=== PATIENT | male | born 1955 | race Caucasian/White ===

== ENCOUNTER 2017-01-20 16:19 | Inpatient (IN) | payer SELFPAY ==
--- NOTE | 2017-01-20 17:47 | DR.GENAD ---
HPI - PCP Primary Care Physician: CHANTEL - HPI Comment HPI Comment: HISTORY BELOW. - Complaint/Symptoms Chief Complaint Doctors Comments: DIABETIC FOOT ULCER BOTH FEET. ULCERS DRAINING. REDNESS RT LEG. PATIENT ULCERS FOR FEW MONTHS NOW. TOOK BACTRIM. RECENTLY ADVICE AMPULATION OF ONE OF HIS LEG. SEE NURSING NOTE. Chief Complaint:: PT. HAS A WOUND TO RIGHT LOWER LEG ON THE BACK SIDE RIGHT ABOVE HEEL. AREA IS REDDENED AND WARM TO TOUCH. PT. JUST MOVED HERE FROM [place]. HE STATES ABOUT A MONTH AGO THEY WANTED TO AMPUTATE HIS RIGHT LEG DUE TO INFECTION. PT. STATES AREA ORIGINALLY APPEARED ABOUT 2 MONTHS AGO. PT. ALSO HAS A WOUND TO LEFT FOOT NEAR BASE OF GREAT TOE. - Nurses notes reviewed Nurses Notes Review: Yes - Source History Provided: Patient - Mode of Arrival Mode of Arrival: Ambulatory - Timing Onset of Chief Complaint: 11/21/16 Came on: Gradually - Duration Duration: Constant Duration: Weeks - Severity Severity: Moderate PMH - PMH Past Medical History: Yes Past Medical History: Arthritis, Diabetes Past Medical History Comment: NEUROPATHY Past Surgical History: Yes Surgical History: Other Past Surgical History Comment: 5TH DIGIT TO LEFT FOOT REMOVED - Family History History of Family Medical Conditions: No - Social History Does patient currently use any type of tobacco product: No Have you used tobacco products in the last 12 months: No Type of Tobacco Use: None Does any household member use tobacco: No Alcohol Use: Rarely Do you use any recreational Drugs:: No Lives With: Family Lives Where: Home - infectious screening In the last 2 months have you had wt loss of >10#?: NO Have you had fever, night sweats or hemotysis?: No Have you traveled outside the country in the last 6 months?: Yes Details about traveling: ARRIVED TO [place] 1 WEEK AGO FROM [place] Isolation: Standard ROS - Review of Systems Constitutional: Fatigue. negative: Chills, Fever Eyes: No Symptoms Reported ENTM: No Symptoms Reported Respiratoy: No Symptoms Reported Cardiovascular: No Symptoms Reported Gastrointestinal/Abdominal: No Symptoms Reported Genitourinary: No Symptoms Reported Neurological: No Symptoms Reported Musculoskeletal: Right, Left, Shoulder (PAIN BOTH SHOULDERS. TOOK STERIOD INJECTION FOR SAME PREVIOUSLY.), Leg, Foot Integumentary: Other (ULCERS FEET AND CELLULITIS RT LEG.) Hematologic/Lymphatic: No Symptoms Reported Endocrine: No Symptoms Reported All Other Systems: Reviewed and Negative PE - Vital Signs Vitals: Temperature 98.1 F Pulse Rate 78 Respiratory Rate 17 Blood Pressure 104/66 O2 Sat by Pulse Oximetry 99 - General Limitations: No Limitations General Appearance: Alert - Head Head Exam: Normal Inspection - Eyes Eye exam: Normal Appearance - ENT ENT Exam: Normal External Ear Exam External Ear Exam: Normal External Inspection TM/Canal Exam: Bilateral Normal Nose Exam: Normal Nose Exam Mouth Exam: Normal Inspection Throat Exam: Normal Inspection - Neck Neck Exam: Trachea Midline - Chest Chest Inspection: Symmetric Chest Wall Rise - Respiratory Respiratory Exam: Normal Lung Sounds Bilat Respiratory Exam: Bilateral Clear to Auscultation - Cardiovascular Cardiovascular Exam: Regular Rate, Normal Rhythm, Normal Heart Sounds - Abdominal Exam Abdominal Exam: Normal Bowel Sounds - Extremities Extremities Exam: Tenderness (DIABETIC ULCERS FEET. CELLULITIS RT LEG.), Joint Swelling - Back Back Exam: Normal Inspection - Neurologic Neurological Exam: Alert, Oriented X3 - Psychiatric Psychiatric Exam: Normal Affect, Normal Mood - Skin Skin Exam: Rash, Erythema MDM - Differential Diagnosis Differential Diagnosis: CELLULITIS, DIABETIC ULCERS, OSTEOMYELITIS, Course - Treatment Treatment: SEE ORDERS. - Consultation Consultation Comments: DISCUSS PATIENT WITH DR. MORGAN. HE WILL ADMIT PATIENT. - Education/Counseling Education/Counseling: Patient Educated On: Treatment, Diagnosis ROR - Labs Reviewed Laboratory Results Reviewed?: Yes Result Diagrams: 01/20/17 17:57 01/20/17 17:57 - XRAY XRAY Interpreted by: Radiologist XRAY Findings: REPORT DISCUSS WITH PATIENT. - Diagnosis Discharge Problem: Cellulitis Qualifiers: Site of cellulitis: extremity Site of cellulitis of extremity: toe Laterality: left Qualified Code(s): L03.032 - Cellulitis of left toe Diabetic foot ulcer Qualifiers: Diabetic foot ulcer location: heel Diabetes mellitus type: type 2 Laterality: right Non-pressure ulcer stage: with necrosis of bone Qualified Code(s): E11.621 - Type 2 diabetes mellitus with foot ulcer; L97.414 - Non-pressure chronic ulcer of right heel and midfoot with necrosis of bone - Discharge Plan Disposition: ADMITTED INPATIENT Condition: Stable - Follow ups/Referrals - Instructions
[2017-01-20 18:11] LABS: BASOPHILS % (AUTO) 0.4 % (0.2-1.0); EOSINOPHILS # (AUTO) 0.3 x10^3/uL (0.0-0.2); EOSINOPHILS % (AUTO) 2.3 % (0.9-2.9); HEMATOCRIT 39.9 % (42.0-54.0); HEMOGLOBIN 13.5 g/dL (13.5-18.0); LYMPHOCYTES # (AUTO) 1.6 X10^3/uL (1.3-2.9); LYMPHOCYTES % (AUTO) 12.7 % (21.0-51.0); MEAN CORPUSCULAR HEMOGLOBIN 27.9 pg (27.0-34.0); MEAN CORPUSCULAR HGB CONC 33.7 g/dL (33.0-35.0); MEAN CORPUSCULAR VOLUME 82.8 fL (80.0-100.0); MEAN PLATELET VOLUME 7.7 fL (7.4-11.0); MONOCYTES # (AUTO) 0.8 x10^3/uL (0.3-0.8); MONOCYTES % (AUTO) 6.4 % (0.0-13.0); NEUTROPHILS # (AUTO) 9.7 x10^3/uL (2.2-4.8); NEUTROPHILS % (AUTO) 78.2 % (42.0-75.0); PLATELET COUNT 269 X10^3/uL (150.0-450.0); RED BLOOD COUNT 4.82 X10^6/uL (4.7-6.0); RED CELL DISTRIBUTION WIDTH 14.6 % (11.6-16.5); WHITE BLOOD COUNT 12.4 X10^3/uL (3.6-10.0)
[2017-01-20 18:26] LABS: ALANINE AMINOTRANSFERASE 23 Units/L (12-78); ALBUMIN 3.7 g/dL (3.4-5.0); ALKALINE PHOSPHATASE 69 Units/L (46-116); ASPARTATE AMINO TRANSFERASE 16 Units/L (15-37); BLOOD UREA NITROGEN 18 mg/dL (7-18); CALCIUM 9.3 mg/dL (8.5-10.1); CARBON DIOXIDE 30.1 mmol/L (21-32); CHLORIDE 104 mmol/L (98-107); COR NA(FOR HYPERGLY) 138 mmol/L (136-145); GLUCOSE 143 mg/dL (65-99); SODIUM 137 mmol/L (136-145); TOTAL PROTEIN 7.7 g/dL (6.4-8.2); eGFR BLACK RACES > 60 (>60); eGFR NON BLACK RACES > 60 (>60)
--- NOTE | 2017-01-20 18:46 | RAD ---
Left foot, three views Indication: Left foot wound near the base of the great toe Comparison: None Findings: There is soft tissue prominence along the medial aspect of the great toe MTP joint with lazcano ggestion of ulceration. There is attenuation of the underlying cortex, seen on the oblique image. There are degenerative changes of the great toe MTP and IP joints, marked at the IP joint with assoc iated lateral subluxation of the distal phalanx. Chronic changes of previous 5th mid metatarsal amputation noted. There is bony irregularity of the 4 th toe proximal phalanx, most suggestive for chronic fracture deformity. There may be a chronically nonunited fracture at the base of the 5th metatarsal as well. Prominent calcaneal enthesophyte noted at the plantar fascia attachment. Impression: 1. Soft tissue swelling with ulceration adjacent to the great toe MTP joint with possible erosive ch mehdi of the underlying metatarsal head. Osteomyelitis cannot be excluded in this region. Consider MR I with contrast for further evaluation, if indicated. 2. Chronic appearing irregularity of the 4th toe proximal phalanx, possibly remote of fracture, alth ough chronic or indolent infection cannot be excluded. 3. Additional findings as above. Reported By:
--- NOTE | 2017-01-20 18:49 | RAD ---
Right foot, three views Indication: Chronic ankle wound Comparison: None Findings: There is soft tissue swelling along the posterior aspect of the ankle, best seen on the la teral view. No associated soft tissue gas appreciated in this region. There is chronic appearing tap ering and erosive change of the great toe, predominantly involving the distal phalanx, with chronic ankylosis at the IP joint. No acute cortical disruption or malalignment is identified. Impression: 1. Focal soft tissue swelling of the posterior ankle 2. Chronic appearing irregularity of the great toe, which could be postsurgical or represent sequela from chronic infection. Correlation recommended. Reported By:
[2017-01-20] MEDS ORDERED: PHENERGAN TAB 25 MG PO PRN (19:50)
[2017-01-20] MEDS ORDERED: MOTRIN TAB 600 MG PO PRN (19:50)
[2017-01-20] MEDS ORDERED: PHARMACY CONSULT - VANCOMYCIN XX SCH (20:00)
[2017-01-20] MEDS ORDERED: D5W 1000 ML IV 1,000 ML IV SCH (20:00)
[2017-01-20] MEDS ORDERED: HumuLIN R SC PRN (21:00)
[2017-01-20] MEDS ORDERED: NS 100 ML IV + SPIKE MINIBAG* 100 ML IV ONE (21:48)
[2017-01-20] MEDS: ZOSYN VIAL 3.375 GM IV SCH (21:52)
[2017-01-20] MEDS: VANCOMYCIN 1 GM PREMIX (ADDVANTAGE) 250 ML IV SCH (21:52)
[2017-01-20] MEDS: NS 1000 ML 1,000 ML IV SCH (21:52)
[2017-01-21] MEDS: NEURONTIN CAP 300 MG PO SCH ×2 (01:07→21:03)
[2017-01-21] MEDS ORDERED: NS 100 ML IV + SPIKE MINIBAG* 100 ML IV ONE ×2 (05:30→14:07)
[2017-01-21] MEDS: ZOSYN VIAL 3.375 GM IV SCH ×3 (05:45→21:04)
[2017-01-21] MEDS: NS 1000 ML 1,000 ML IV SCH ×3 (06:12→22:21)
[2017-01-21 06:16] VITALS: BMI 28.7
[2017-01-21] MEDS: VANCOMYCIN 1 GM PREMIX (ADDVANTAGE) 250 ML IV SCH ×2 (08:18→21:04)
[2017-01-21] MEDS: ULTRAM PO PRN (08:25)
--- NOTE | 2017-01-21 13:36 | DR.H&P ---
H&P - History & Physical for Day of: H&P Date: 01/20/17 - Chief Complaint Chief Complaint: DIABETIC ULCERS TO BILATERAL LEGS - Allergies Allergies/Adverse Reactions: Allergies Allergy/AdvReac Type Severity Reaction Status Date / Time No Known Drug Allergies Allergy Verified 01/20/17 16:26 - History of Present Illness History of Present Illness: IS A 61 YEAR OLD WHITE MALE WHO PRESENTED TO THE EMERGENCY ROOM WITH COMPLAINTS OF DIABETIC FOOT ULCERS. HE IS NOTED WITH A DRAINING ULCERS TO THE LEFT UPPER MEDIAL FOOT AND ALSO ABOVE THE RIGHT POSTERIOR ANKLE. PATIENT STATED THAT THE WOUND TO THE RIGHT LOWER LEG HAS BEEN THERE FOR 3 MONTHS AND STARTED OUT A BLISTER. THERE IS REDNESS WITH SWELLING AND WARMTH TO RIGHT LEG. SKIN IS NOTED DRY AND PEELING. PATIENT STATED THAT HE JUST MOVED HERE FROM [place], WHERE HE WAS BEING TREATED FOR DIABETIC ULCERS AND INFECTION WITH BACTRIM. PATIENT STATED THAT ABOUT A MONTH AGO, HIS DOCTORS CONSIDERED AMPUTATING HIS RIGHT FOOT DUE TO GANGREEN. ON ARRIVAL TO ER, VITALS WERE 98.1-78-17-99%-104/66. CBC WNL EXCEPT WBC 12.4, HCT 39.9. CMP WNL EXCEPT GLUCOSE 143. LEFT FOOT XRAY REPORTED SOFT TISSUE SWELLING WITH ULCERATION ADJACENT TO THE GREAT TOE MTP JOINT WITH POSSIBLE EROSIVE CHANGE OF THE UNDERLYING METATARSAL HEAD. OSTEOMYELITIS COULD NOT BE EXCLUDED. ALSO, CHROINC APPEARING IRREGULARITY OF THE 4TH TOE PROXIMAL PHALANX, POSSIBLY REMOTE OF FRACTURE ALTHOUGH CHRONIC OR INDOLENT INFECTION CANNOT BE EXCLUDED. RIGHT FOOT XRAY REPORTED FOCAL SOFT TISSUE SWELLING OF THE POSTERIOR ANKLE AND CHRONIC APPEARING IRREGULARITY OF THE GREAT TOE, WHICH COULD BE POSTSURGICAL OR REPRESENT SEQUELA FROM CHRONIC INFECTION. WE ADMITTED PATIENT FOR FURTHER TREATMENT AND EVALUATION. WE STARTED HIM ON VANCYOMYCIN 1GM IV Q12H, NS @ 125ML/ HR, ZOSYN 3.375 GM IV Q8H, ULTRAM 100MG PO Q6H PRN, AND NEURONTIN 300MG QHS. WE WILL PLAN TO RECHECK LABS AND FOLLOW UP WITH PATIENT IN AM. - Past Medical History Past Medical History: Arthritis, Diabetes Additional Medical History: DIABETIC NEUROPATHY, RESTLESS LEG SYNDROME - Past Surgical History Surgical History: Ortho Surgery, Other Additional Surgical History: ORIF OF RIGHT FEMUR, FIFTH LEFT DIGIT REMOVED - Family History Family Medical History: Diabetes Mellitus - Social History Does patient currently use any type of tobacco product: No Have you used tobacco products in the last 12 months: No Type of Tobacco Use: None Does any household member use tobacco: No Alcohol Use: Rarely Drug Use: None - Medications Home Medications: Baclofen 10 mg PO BID PRN 01/20/17 [History Confirmed 01/21/17] Ergocalciferol (Vitamin D2) [Vitamin D2] 50,000 unit PO WEEKLY 01/20/17 [ History Confirmed 01/21/17] Gabapentin [Neurontin Cap 300 mg] 300 mg PO HS 01/20/17 [History Confirmed 01/21] Hydroxyzine HCl 25 mg Tab [ATARAX *] 25 mg PO BID PRN 01/20/17 [History Confirmed 01/21/17] Meloxicam 7.5 mg PO BID 01/20/17 [History Confirmed 01/21/17] Metformin HCl 1,000 mg PO BID 01/20/17 [History Confirmed 01/21/17] Tramadol HCl 100 mg PO Q6H PRN 01/20/17 [History Confirmed 01/21/17] - Review of Systems Constitutional: No Symptoms Reported. denies: See HPI, Fever, Chills, Sweats, Weakness, Malaise, Other Eyes: No Symptoms Reported. denies: See HPI, Pain, Vision Change, Conjunctivae Inflammation, Eyelid Inflammation, Redness, Other ENT: No Symptoms Reported. denies: See HPI, Ear Pain, Ear Discharge, Nose Pain , Nose Discharge, Nose Congestion, Mouth Pain, Mouth Swelling, Throat Pain, Throat Swelling, Other Respiratory: No Symptoms Reported. denies: See HPI, Cough, Dry, Shortness of Breath, Hemoptysis, SOB with Excertion, Pleuritic Pain, Sputum, Wheezing, Other Cardiovascular: No Symptoms Reported. denies: Chest Pain, See HPI, Palpitations , Orthopnea, Paroxysmal Noc. Dyspnea, Edema, Light Headedness, Other Gastrointestinal: No Symptoms Reported. denies: See HPI, Nausea, Vomiting, Abdominal Pain, Diarrhea, Constipation, Melena, Hematochezia, Other Genitourinary: No Symptoms Reported. denies: See HPI, Dysuria, Frequency, Incontinence, Hematuria, Retention, Other Musculoskeletal: See HPI, Shoulder Pain, Leg Pain, Foot Pain. denies: No Symptoms Reported, Arm Pain, Back Pain, Hand Pain, Neck Pain, Other Skin: See HPI, Wound Neurological: No Symptoms Reported. denies: See HPI, Weakness, Numbness, Incoordination, Change in Speech, Confusion, Seizures, Other - Physical Exam Vital Signs: Temperature 97.7 F Pulse Rate [Left Radial] 70 Respiratory Rate 20 Blood Pressure [Right Arm] 140/83 Blood Pressure [Left Arm] 166/77 O2 Sat by Pulse Oximetry 96 Oriented: Normal. negative: Time, Person, Place, Not Oriented, Unable to test, Other Eyes: Normal. negative: Blurred Vision, Diplopia, Discharge, Pain, Redness, Photophobia, Other Ear: Normal. negative: Right, Left, Swelling, Ecchymosis, Hemotypanum, Abrasion , Laceration Nose: Normal. negative: Injected, Discharge, Blood, Other Throat: Normal. negative: Tonsillar Hypertrophy, Red, Exudate, Dry, Other Respiratory: Clear Throughout. negative: Diminished Throughout, Rhonchi Throughout, Rales Throughout, Wheezes Throughout, RUL Clear, RML Clear, RLL Clear, LEANA Clear, LML Clear, LLL Clear, RUL Diminished, RML Diminished, RLL Diminished, LEANA Diminished, LML Diminished, LLL Diminished, RUL Absent, RML Absent, RLL Absent, LEANA Absent, LML Absent, LLL Absent, RUL Rhonchi, RML Rhonchi , RLL Rhonchi, LEANA Rhonchi, LML Rhonchi, LLL Rhonchi, RUL Insp. Wheeze, RML Insp. Wheeze, RLL Insp. Wheeze, LEANA Insp.Wheeze, LML Insp.Wheeze, LLL Insp.Wheeze, RUL Exp. Wheeze, RML Exp. Wheeze, RLL Exp. Wheeze, LEANA Exp. Wheeze , LML Exp. Wheeze, LLL Exp. Wheeze, RUL Rales, RML Rales, RLL Rales, LEANA Rales, LML Rales, LLL Rales, RUL Rub, RML Rub, RLL Rub, LEANA Rub, LML Rub, LLL Rub, RUL Squeak, RML Squeak, RLL Squeak, LEANA Squeak, LML Squeak, LLL Squeak Cardiovascular: Normal. negative: Tachycardia, Bradycardia, Irregular, S3, S4, Systolic, Diastolic, Murmur, Edema, Other : Normal. negative: Dysuria, Hematuria, Frequency, Discharge, Testicular Pain , Bleeding, , Other Auscultation: Bowel Sounds: Normal. negative: Bruit, Absent, Increased, Decreased, High Pitched, Other Palpation: Normal. negative: Spleen Enlarged, Liver Enlarged, Mass Pulsatile, Other Tenderness: Normal. negative: Diffuse, RUQ, RLQ, LUQ, LLQ, Epigastric, Periumbilical, Suprapubic, Mild, Moderate, Severe, Rebound, Guarding, Rigidity, Other Skin: Red, Tender, Wound Musculoskeletal: Right, Left, Leg, Tender Psychiatric: Normal Mood Description: Calm Affect: Normal Speech Pattern: Clear
[2017-01-21] MEDS ORDERED: NS 50 ML IV + SPIKE MINIBAG* 50 ML IV ONE (20:19)
--- NOTE | 2017-01-21 21:38 | PCM.PROG ---
Progress Note - Progress Note for Day of Date: 01/21/17 - Subjective Subjective: WAS ADMITTED YESTERDAY WITH CELLULITIS TO LOWER EXTEMITIES AND BILATERAL DIABETIC FOOT ULCERS. HE IS ALERT AND ORIENTED ON MORNING ROUNDS. HE CONTINUES WITH REDNESS, SWELLING, AND WARMTH TO BILATERAL LEGS. WOUNDS TO BILATERAL LOWER EXTREMITIES NOTED WITH DRESSINGS DRY AND INTACT. WE WILL ORDER WOUND CONSULT TODAY. VITALS ON MORNING ROUNDS ARE 98.0-75- 20-93%-166/81. CBC REPORTS WBC 12.4, HGB 13.5, HCT 39.9. CMP REPORTS SODIUM 137 , POTASSIUM 4.4, BUN 18, CREATININE 1.10. TOTAL PROTEIN 7.7, ALBUMIN 3.7. GLUCOSE 143. ALL OTHER VALUES WITHIN NORMAL LIMITS. WE WILL CONSULT ANESTHESIA FOR A PICC LINE DUE TO THE NEED FOR EXTENDED IV ANTIBIOTICS AFTER DISCHARGE. WE WILL ALSO ORDER SLIDING SCALE INSULIN. WE WILL RECHECK CBC, CMP, AND CHEST XRAY AND FOLLOW UP WITH PATIENT IN AM. - Past Medical Family Social History Past Med/Fam/Surg Hx: No changes since H&P Allergies: Allergies No Known Drug Allergies Allergy (Verified 01/20/17 16:26) - Review of Systems ROS: No change since H&P - Vital Signs and I&O's Vital Signs: Temperature 98.7 F Pulse Rate [Left Radial] 65 Respiratory Rate 18 Blood Pressure [Right Arm] 148/92 Blood Pressure [Left Arm] 166/77 O2 Sat by Pulse Oximetry 99 Intake and Output: Intake & Output 01/19/17 01/20/17 01/21/17 01/22/17 11:59 11:59 11:59 11:59 Intake Total 1380 840 Balance 1380 840 - Physical Exam Oriented: Normal. negative: Time, Person, Place, Not Oriented, Unable to test, Other Eyes: Normal. negative: Blurred Vision, Diplopia, Discharge, Pain, Redness, Photophobia, Other Ear: Normal. negative: Right, Left, Swelling, Ecchymosis, Hemotypanum, Abrasion , Laceration Nose: Normal. negative: Injected, Discharge, Blood, Other Throat: Normal. negative: Tonsillar Hypertrophy, Red, Exudate, Dry, Other Respiratory: Normal. negative: Right, Left, Generalized, Superior, Inferior, Diminished, Wheezes, Rales, Rhonchi, OTHER Cardiovascular: Normal. negative: Tachycardia, Bradycardia, Irregular, S3, S4, Systolic, Diastolic, Murmur, Edema, Other : Normal. negative: Dysuria, Hematuria, Frequency, Discharge, Testicular Pain , Bleeding, , Other Auscultation: Bowel Sounds: Normal. negative: Bruit, Absent, Increased, Decreased, High Pitched, Other Palpation: Normal Tenderness: Normal. negative: Diffuse, RUQ, RLQ, LUQ, LLQ, Epigastric, Periumbilical, Suprapubic, Mild, Moderate, Severe, Rebound, Guarding, Rigidity, Other Skin: Red, Tender, Wound. negative: Normal, Decreased Turgur, Rash, Papular, Macular, Maculopapular, Vesicular, Pustular, Petechial, Hot, Diaphoresis, Bruising, Ecchymosis, Other Musculoskeletal: Right, Left, Leg, Tender. negative: Normal, Shoulder, Clavicle , Arm, Elbow, Forearm, Wrist, Hand, Hip, Thigh, Knee, Ankle, Foot, Back:Thoracic , Back:Lumbar, Back:Midline, Back:Paraspinous, Pelvis, Swelling, Deformity, Pulse Deficit, Motor Deficit, Sensory Deficit, Instability, Crepitance Psychiatric: Normal Mood Description: Calm Affect: Normal Speech Pattern: Clear - Laboratory and Diagnostics Result Diagrams: 01/20/17 17:57 01/20/17 17:57 Labs: Laboratory WBC 12.4 X10^3/uL (3.6-10.0) H 01/20/17 17:57 RBC 4.82 X10^6/uL (4.7-6.0) 01/20/17 17:57 Hgb 13.5 g/dL (13.5-18.0) 01/20/17 17:57 Hct 39.9 % (42.0-54.0) L 01/20/17 17:57 MCV 82.8 fL (80.0-100.0) 01/20/17 17:57 MCH 27.9 pg (27.0-34.0) 01/20/17 17:57 MCHC 33.7 g/dL (33.0-35.0) 01/20/17 17:57 RDW 14.6 % (11.6-16.5) 01/20/17 17:57 Plt Count 269 X10^3/uL (150.0-450.0) 01/20/17 17:57 MPV 7.7 fL (7.4-11.0) 01/20/17 17:57 Neut % 78.2 % (42.0-75.0) H 01/20/17 17:57 Lymph % 12.7 % (21.0-51.0) L 01/20/17 17:57 Graham % 6.4 % (0.0-13.0) 01/20/17 17:57 Eos % 2.3 % (0.9-2.9) 01/20/17 17:57 Baso % 0.4 % (0.2-1.0) 01/20/17 17:57 Neut # 9.7 x10^3/uL (2.2-4.8) H 01/20/17 17:57 Lymph # 1.6 X10^3/uL (1.3-2.9) 01/20/17 17:57 Graham # 0.8 x10^3/uL (0.3-0.8) 01/20/17 17:57 Eos # 0.3 x10^3/uL (0.0-0.2) H 01/20/17 17:57 Baso # 0.0 X10^3/uL (0.0-0.1) 01/20/17 17:57 Absolute Nucleated RBC 0.0 /100WBC 01/20/17 17:57 Sodium 137 mmol/L (136-145) 01/20/17 17:57 Corrected Sodium 138 mmol/L (136-145) 01/20/17 17:57 Potassium 4.4 mmol/L (3.5-5.1) 01/20/17 17:57 Chloride 104 mmol/L (98-107) 01/20/17 17:57 Carbon Dioxide 30.1 mmol/L (21-32) 01/20/17 17:57 BUN 18 mg/dL (7-18) 01/20/17 17:57 Creatinine 1.10 mg/dL (0.70-1.30) 01/20/17 17:57 Est GFR (MDRD) Af Amer > 60 (>60) 01/20/17 17:57 Est GFR (MDRD) Non-Af > 60 (>60) 01/20/17 17:57 Glucose 143 mg/dL (65-99) H 01/20/17 17:57 Calcium 9.3 mg/dL (8.5-10.1) 01/20/17 17:57 Corrected Calcium TNP 01/20/17 17:57 Total Bilirubin 0.30 mg/dL (0.2-1.0) 01/20/17 17:57 AST 16 Units/L (15-37) 01/20/17 17:57 ALT 23 Units/L (12-78) 01/20/17 17:57 Alkaline Phosphatase 69 Units/L (46-116) 01/20/17 17:57 C-Reactive Protein 0.50 mg/L (0-3.0) 01/20/17 17:57 Total Protein 7.7 g/dL (6.4-8.2) 01/20/17 17:57 Albumin 3.7 g/dL (3.4-5.0) 01/20/17 17:57 Globulin 4.0 g/dL (2.5-4.5) 01/20/17 17:57 Albumin/Globulin Ratio 0.9 Ratio (1.1-2.1) L 01/20/17 17:57 - Plan (1) Cellulitis Status: Acute Qualifiers: Site of cellulitis: extremity Site of cellulitis of extremity: toe Site of cellulitis of trunk: S Laterality: left Qualified Code(s): L03.032 - Cellulitis of left toe (2) Diabetic foot ulcer Status: Acute Qualifiers: Diabetic foot ulcer location: heel Diabetes mellitus type: type 2 Laterality: right Non-pressure ulcer stage: with necrosis of bone Qualified Code(s): E11.621 - Type 2 diabetes mellitus with foot ulcer; L97.414 - Non- 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
[2017-01-22] MEDS ORDERED: NS 100 ML IV + SPIKE MINIBAG* 100 ML IV ONE (05:13)
[2017-01-22] MEDS: ZOSYN VIAL 3.375 GM IV SCH (05:20)
[2017-01-22] MEDS: NS 1000 ML 1,000 ML IV SCH ×2 (05:22→20:44)
[2017-01-22 09:06] LABS: CREATININE 1.11 mg/dL (0.70-1.30); VANCOMYCIN,TROUGH 11.5 ug/mL (15-20)
[2017-01-22] MEDS: ULTRAM PO PRN (09:16)
[2017-01-22] MEDS: VANCOMYCIN 1 GM PREMIX (ADDVANTAGE) 250 ML IV SCH ×2 (09:16→20:32)
[2017-01-22] MEDS ORDERED: XYLOCAINE 1 % (PLAIN) ONE (15:17)
--- NOTE | 2017-01-22 16:06 | DR.UPDATE ---
H&P Update History and Physical Update: History and Physical reviewed and patient examined. Changes noted: NO Yes with the following:agree with H&P from Dr Cat. will proceed with PICC. Procedures (ALL) - Central Line Placement PCM.CLCO: written consent Time out performed: Yes Patient placed pm monitor/pulse ox: Yes MD prep: mask, gown, gloves, other Centrial line prep: povidone-iodine 1% Local anesthsia used: lidocane 1% Ultrasound used for placement: Yes Central line lumen ininserted: double (power picc 5fr. trimmed length 50cm, with 3cm out ) Post procedure: good blood return, all ports aspirated, flushed,capped, sterile dressing applied Post procedure xray: tip oc catheter in good position, no pneumothorax seen Patient tolerated procedure: Yes Complications: none
--- NOTE | 2017-01-22 16:12 | RAD ---
AP chest Indication: PICC line placement Comparison: None available Findings: A left-sided PICC line has been placed with its tip within the lower SVC. No pneumothorax. Heart size is normal. No focal airspace opacity, pleural effusion or pneumothorax. Chronic fracture deformity of the mid left clavicle is noted. Impression: Placement of left sided PICC line with its tip projecting within the lower SVC. No acute cardiopulmonary abnormality. Reported By:
[2017-01-22] MEDS ORDERED: SNACK - Diabetic Appropriate PO SCH (20:00)
[2017-01-22] MEDS: NEURONTIN CAP 300 MG PO SCH (20:33)
[2017-01-23 02:43] VITALS: BP 150/81
== END 2017-01-22 22:25 | disposition home or self-care (01) | DRG 638 ==
LOC: ER 16:37 → MED/SURG 19:48
PROVIDERS: ADMIT Internal Medicine; ATTEND Internal Medicine
PROC: 02HV33Z Insertion of Infusion Device into Superior Vena Cava, Percutaneous Approach (ICD-10-PCS; principal; 2017-01-22)
DX: E11.621 Type 2 diabetes mellitus with foot ulcer (principal); L03.115 Cellulitis of right lower limb; L03.116 Cellulitis of left lower limb; L97.414 Non-pressure chronic ulcer of right heel and midfoot with necrosis of bone; M13.89 Other specified arthritis, multiple sites; E11.65 Type 2 diabetes mellitus with hyperglycemia; B96.5 Pseudomonas (aeruginosa) (mallei) (pseudomallei) as the cause of diseases classified elsewhere; B95.62 Methicillin resistant Staphylococcus aureus infection as the cause of diseases classified elsewhere; M25.511 Pain in right shoulder; G25.81 Restless legs syndrome; E11.40 Type 2 diabetes mellitus with diabetic neuropathy, unspecified
CPT/HCPCS: 36415; 71010; 73630; 80053; 80202; 82565; 85025; 86140; 87070; 87075; 87077; 87186; 87205; 96365; 99284; A4222; J2001; J2543; J3370

== ENCOUNTER → 2017-02-22 | Outpatient (CLI) | payer SELFPAY ==
[2017-01-23 02:43] VITALS: BP 150/81
[~2017-02-22] MED LIST: VANCOMYCIN 1 GM PREMIX (ADDVANTAGE) 250 ML IV ONE; VANCOMYCIN HCL 1 GM VIAL 1 GM in D5W 250 ML IV 250 ML IV ONE
[2017-02-22 07:58] VITALS: BMI 26.6
== END ==
LOC: ER 07:48
PROVIDERS: ATTEND Internal Medicine
DX: Z79.899 Other long term (current) drug therapy (principal); Z48.00 Encounter for change or removal of nonsurgical wound dressing; E11.621 Type 2 diabetes mellitus with foot ulcer; L97.414 Non-pressure chronic ulcer of right heel and midfoot with necrosis of bone
CPT/HCPCS: 96365; 96374; J3370